=== PATIENT | female | born 1950 | race Caucasian/White ===

== ENCOUNTER → 2021-11-05 09:12 | Outpatient (CLI) | payer MEDICARE, BC, SELFPAY ==
--- NOTE | 2021-11-05 09:19 | DI.US.S_ITS ---
PROCEDURE: US ABDOMEN LIMITED INDICATIONS: Right lower quadrant pain TECHNIQUE: Real-time focused scanning was performed of the abdomen with attention to the appendix, with image documentation. COMPARISON: [facility], US, US PELVIC COMPLETE, 11/05/2021, 9:29. FINDINGS: Appendix visualization: Not visualized IMPRESSION: The appendix is not definitively visualized and therefore acute appendicitis cannot be excluded; however there are no secondary findings to suggest acute appendicitis. Dictated by: Juno Landers M.D. on 11/05/2021 at 9:31 Approved by: Juno Landers M.D. on 11/05/2021 at 9:32
--- NOTE | 2021-11-05 09:19 | DI.US.S_ITS ---
PROCEDURE: US PELVIC COMPLETE INDICATIONS: Right lower quadrant pain TECHNIQUE: Real-time scanning was performed of the pelvic organs, with image documentation. Additional endovaginal scanning was necessary due to incomplete visualization of the adnexal and endometrial structures by transabdominal scanning. COMPARISON: None. FINDINGS: Uterus: Uterus is anteverted and normal in size at 4.5 x 2.6 x 3.8 cm. The myometrium is homogeneous. The endometrium measures 2.4 mm combined thickness. No uterine fibroids. A nabothian cyst is seen. A subcentimeter echogenic area in the right ovary is nonspecific. Possibly a hemorrhagic cyst. Ovaries: The right ovary measures 1.5 x 1.4 x 1.3 cm. The left ovary is not seen. Other: No pathologic free abdominal or pelvic fluid. IMPRESSION: No acute ultrasound abnormality of the pelvis. We strive to produce accurate, complete, and clear reports of imaging services. To assist us in improving patient care, this report was composed using standard report templates and voice recognition software. Therefore, it may contain abnormal punctuation, insertions and/or omissions. Occasional wrong-word or sound-alike substitutions may occur. Though we review the report and make efforts to correct it, we do recommend that the report be read carefully in proper context to recognize any text inaccuracies. Dictated by: Juno Landers M.D. on 11/05/2021 at 9:32 Approved by: Juno Landers M.D. on 11/05/2021 at 9:34
== END ==
PROVIDERS: PCP Family Medicine; Referring Provider Internal Medicine; Visit Provider Internal Medicine
DX: R10.31 Right lower quadrant pain (principal)
CPT/HCPCS: 76705; 76856

== ENCOUNTER → 2022-07-11 10:01 | Outpatient (CLI) | payer MEDICARE, BC, SELFPAY ==
--- NOTE | 2022-07-11 09:22 | DI.DEXA.S_ITS ---
Indication: postmenopausal; screening for osteoporosis; Referring Provider: EYAL KNOWLES Study: Bone densitometry was performed. Exam Date: July 11, 2022 Accession number: [id number] Bone Density: Region BMD T-score Z-score Classification AP Spine(L1, L2, L3) 0.739 -2.5 -0.4 Osteoporosis Femoral Neck (Right) 0.593 -2.3 -0.5 Osteopenia Total Hip (Right) 0.637 -2.5 -1.0 Osteoporosis Total Forearm (Left) 0.468 -2.0 0.0 Osteopenia 1/3 Forearm (Left) 0.586 -1.8 0.3 Osteopenia UD Forearm (Left) 0.345 -1.7 -0.2 Osteopenia World Health Organization criteria for BMD impression classify patients as: Normal (T-score at or above -1.0), Osteopenia (T-score between -1.0 and -2.5), or Osteoporosis (T-score at or below -2.5). 10-year Fracture Risk: FRAX not reported because: Some T-score for Spine Total or Hip Total or Femoral Neck at or below -2.5 Impression: The patient has osteoporosis, based on the Total Spine T-score. Discussion: INCREASED RISK OF FRACTURE. BONE DENSITY IS UNDESIRABLY LOW AT ONE OR MORE SKELETAL SITES, CONSISTENT WITH POSTMENOPAUSAL OSTEOPOROSIS. This patient's lowest T-score meets the World Health Organization's (WHO) criteria for osteoporosis at one or more sites (T-score -2.5 or below). In untreated patients, the risk of osteoporotic fracture increases approximately two-fold for each 1.0 SD decrease in T-score. Low bone density is not the only risk factor for fracture; also consider factors such as patient's age, frailty or poor health, risk of falling, risk of injury, previous osteoporotic fracture, family history of osteoporosis, cigarette smoking, low body weight, etc. Not everyone with low bone mineral density has osteoporosis; osteomalacia and other metabolic bone disorders should also be considered. Patients who have osteoporosis should be evaluated for specific diseases and conditions (secondary causes) that may cause or contribute to bone loss. The [place] [employer] (AACE) and National Osteoporosis Foundation (NOF) recommend pharmacologic intervention for all postmenopausal women whose T-score is in this range. The patient should follow a healthful lifestyle (good nutrition with adequate calcium and vitamin D, and appropriate weight-bearing exercise). Follow-Up: Consider a repeat BMD and Vertebral Fracture Assessment (VFA) exam in 2 years or sooner if medically necessary, to reassess this patient's status. Reported by: GRACIELA^SHARONDA^DOLORES on 07/11/2022 9:35:00 AM.
== END ==
PROVIDERS: PCP Family Medicine; Referring Provider Family Medicine; Visit Provider Family Medicine
DX: Z78.0 Asymptomatic menopausal state (principal); Z13.820 Encounter for screening for osteoporosis; M81.0 Age-related osteoporosis without current pathological fracture
CPT/HCPCS: 77080; 77081

== ENCOUNTER → 2022-09-30 13:40 | Outpatient (CLI) | payer MEDICARE, BC, SELFPAY ==
--- NOTE | 2022-09-30 | DI.CT.S_ITS ---
PROCEDURE: CT HEAD/BRAIN WO/W CON INDICATIONS: LOSS OF BALANCE, NECK MASS TECHNIQUE: 4.5 mm thick angled axial sections acquired from the foramen magnum to the vertex before and after the administration of intravenous contrast, with coronal and sagittal reformats. For radiation dose reduction, the following was used: automated exposure control, adjustment of mA and/or kV according to patient size. COMPARISON: [facility], CT, CT SOFT TISSUE NECK W CON, 09/30/2022, 15:09. FINDINGS: Image quality: Excellent. CSF Spaces: Basal cisterns are patent. No extra-axial fluid collections. Ventricles are normal in size and shape. Brain: No midline shift. No intracranial bleeds or masses. No abnormal intracranial enhancement. Walsh-white interface appears normal. Arterial and venous structures appear patent within limits of this nondedicated exam. Skull and face: Postsurgical changes of partial left mastectomy. Subtle questionable soft tissue density noted within the surgical bed. There is mild temporomandibular joint degenerative changes. Sinuses: Visualized sinuses and mastoids are clear. IMPRESSION: No acute intracranial abnormality. Specifically no suspicious enhancement. Postsurgical changes of left mastoidectomy. Questionable soft tissue density within the surgical bed. Recommend dedicated CT temporal bone for further evaluation if clinically warranted. Dictated by: Shivam Rodriguez D.O. on 09/30/2022 at 17:35 Approved by: Shivam Rodriguez D.O. on 09/30/2022 at 17:40
--- NOTE | 2022-09-30 13:44 | DI.CT.S_ITS ---
PROCEDURE: CT SOFT TISSUE NECK W CON INDICATIONS: Localized swelling, mass and lump, neck TECHNIQUE: After the administration of intravenous contrast, 3.0 mm axial sections acquired from the sella to the aortic arch. Additional oblique axial 3.0 mm sections acquired through the pharynx. 3 mm thick coronal and sagittal reformats were generated. For radiation dose reduction, the following was used: automated exposure control. COMPARISON: [facility], CT, CT HEAD/BRAIN WO/W CON, 09/30/2022, 15:19. FINDINGS: Image quality: Excellent. Lymph nodes: Scattered cervical chain lymph nodes without non mild the by size criteria. Vessels: Visualized vasculature appears patent. Neck spaces: The oropharynx, nasopharynx, and pharynx demonstrate no mucosal lesions. The vocal cords, false vocal cords, pyriform sinuses, epiglottis, vallecula, and tongue base all appear normal. Extramucosal spaces appear unremarkable. Glands: The parotid glands are normal in size and enhancement. No suspicious mass. There is asymmetry of the submandibular glands. The right submandibular gland demonstrates normal size and enhancement. There is atrophy of the left submandibular gland with decreased attenuation. criteria. The palpable marker correlates to the inferior aspect of the submandibular gland. The thyroid gland is heterogeneous in appearance with multiple thyroid nodules the largest on the left measures up to 1.5 centimeters. Miscellaneous: Visualized brain and orbits appear normal. Lung apices appear clear. Superficial soft tissues appear normal. Bones: No suspicious bony lesions. Minimal mucosal thickening of the inferior aspect of the maxillary sinuses. Postsurgical changes of mastoidectomy with subtle soft tissue attenuation within the surgical bed. IMPRESSION: No suspicious soft tissue mass or adenopathy. Palpable marker likely represents a normal appearing right submandibular gland. This is however asymmetric to guerda atrophic and hypoattenuating left submandibular gland which may be the result of chronic infectious or inflammatory process. Recommend clinical correlation. Left mastoidectomy with subtle soft tissue attenuation within the surgical bed. Consider further evaluation with dedicated temporal bone CT. Dictated by: Shivam Rodriguez D.O. on 09/30/2022 at 17:41 Approved by: Shivam Rodriguez D.O. on 09/30/2022 at 17:46
[2022-09-30 14:55] LABS: Alanine Aminotransferase 28 IU/L (<35); Albumin 4.1 g/dL (3.5-5.0); Albumin Globulin Ratio 1.2 (1.0-2.8); Alkaline Phosphatase 68 U/L (38-126); Aspartate Aminotransferase 25 IU/L (14-36); BUN Creatinine Ratio 23.2 (6-22); Bilirubin Total 0.3 mg/dL (0.2-1.3); Blood Urea Nitrogen 19 mg/dL (7-17); Calcium 9.1 mg/dL (8.4-10.2); Carbon Dioxide 30 mmol/L (22-32); Chloride 100 mmol/L (98-107); Estimated Glomerular Filt Rate > 60 mL/min (>60); Globulin 3.3 g/dL (1.7-4.1); Glucose 90 mg/dL (80-110); HEMOLYSIS < 15 (0-50); Potassium 4.1 mmol/L (3.4-5.1); Sodium 137 mmol/L (137-145); Total Protein 7.4 g/dL (6.3-8.2)
== END ==
PROVIDERS: PCP Family Medicine; Referring Provider Family Medicine; Visit Provider Family Medicine
DX: R22.1 Localized swelling, mass and lump, neck (principal)
CPT/HCPCS: 36415; 70470; 70491; 80053; Q9967

== ENCOUNTER → 2023-10-16 08:34 | Outpatient (CLI) | payer MEDICARE, BC, SELFPAY ==
--- NOTE | 2023-10-16 | DI.MRI.S_ITS ---
PROCEDURE: MR HEAD/BRAIN WO/W CON INDICATIONS: DIZZINESS, LOSS OF BALANCE TECHNIQUE: Noncontrast axial T1 spin echo, axial T2 fast spin echo, sagittal and axial FLAIR, coronal T2 fast spin echo, axial gradient echo, axial diffusion and ADC through the brain. After the administration of contrast, axial and coronal and sagittal T1 spin echo with fat saturation through the brain. COMPARISON: [facility], CT, CT HEAD/BRAIN WO/W CON, 09/30/2022, 15:19. FINDINGS: Image quality: Diagnostic, with note made of motion artifact. CSF spaces: Basal cisterns are patent. No extra-axial fluid collections. Ventricles are normal in size and shape. Brain: No midline shift. No intracranial bleeds or masses. No abnormal intracranial enhancement. There is cerebral volume loss for age. There is periventricular white matter chronic small vessel ischemic change. The brainstem appears normal. Diffusion-weighted images demonstrate no acute infarct. No chronic ischemic insults. Normal intravascular flow voids are present. Skull and face: Calvarial marrow is normal in signal. The globes appear abnormal, elongated in the AP dimension. Sinuses: No significant paranasal sinus abnormality is seen. Prior left mastoidectomy change can be seen. IMPRESSION: No imaging explanation is found for this patient's presenting symptoms. No masses or abnormal enhancement can be seen. Note is made of age-appropriate brain parenchymal volume loss and chronic small vessel ischemic changes. Additional findings: Globes elongated in the AP dimension Prior left mastoidectomy Dictated by: Owen Gaytan M.D. on 10/16/2023 at 9:54 Approved by: Owen Gaytan M.D. on 10/16/2023 at 9:57
== END ==
LOC: MRI 08:35
PROVIDERS: PCP Family Medicine; Referring Provider Family Medicine; Visit Provider Family Medicine
DX: R42 Dizziness and giddiness (principal); R26.89 Other abnormalities of gait and mobility
CPT/HCPCS: 70553; A9579